=== PATIENT | female | born 1940 | race Caucasian/White ===

== ENCOUNTER 2017-04-19 06:07 | Inpatient (IN) | payer MEDICARE, OTHER ==
[2017-04-15 11:15] LABS: Basophils # (auto) 0.1 uL; Basophils % (auto) 1.1 % (0.0-2.0); Eosinophils # (auto) 0.2 uL; Eosinophils % (auto) 2.3 % (0.0-7.0); Hematocrit 41.9 % (36.0-46.0); Hemoglobin 13.9 g/dL (12.2-16.2); Lymphocytes # (auto) 2.4 uL; Lymphocytes % (auto) 35.6 % (10.0-50.0); Mean Corpuscular Hemoglobin 30.7 pg (28.0-32.0); Mean Corpuscular Hgb Conc. 33.1 g/dL (32.0-36.0); Mean Corpuscular Volume 92.9 fL (80.0-100.0); Monocytes # (auto) 0.6 uL; Neutrophils # (auto) 3.5 uL; Nucleated Red Blood Cells % 0.1 %; Platelet Count (auto) 247 10^3/uL (140-450); Red Blood Cells 4.51 10^6/uL (4.0-5.20); Red Cell Distribution Width 14.3 % (11.8-14.3); White Blood Cell 6.8 10^3/uL (4.4-10.8)
[2017-04-15 11:21] LABS: Urine Bacteria FEW /hpf (None Seen); Urine Blood Negative /uL (Negative); Urine Specific Gravity 1.008 (1.001-1.035); Urine WBC <1 /hpf (0 - 5)
[2017-04-15 11:30] LABS: INR 0.9 (0.9-1.15); Partial Thromboplastin Time 27.5 sec (22.64-33.71); Prothrombin Time 9.8 sec (9.37-12.3)
[2017-04-15 11:45] LABS: BUN/Creatinine Ratio 17.1; Bilirubin, Total 0.5 mg/dL (0.2-1.0); Calcium 8.5 mg/dL (8.5-10.1); Potassium 3.7 mmol/L (3.5-5.1); Total Protein 7.9 g/dL (6.4-8.2)
[~2017-04-19] VITALS: Ht 157.5 cm; Wt 64.0 kg
[~2017-04-19 06:07] MED LIST: AMLO10TA2 PO; ASPI81TA27 PO; ATOR10TA PO; METH-928 PO
[2017-04-19] MEDS ORDERED: ceFAZolin 1GM/50ML 50 ML IV ONE (06:46)
[2017-04-19] MEDS ORDERED: ROPIVACAINE 0.5% (5MG/ML) 20ML AMPULE IJ ONE (07:24)
[2017-04-19] MEDS ORDERED: LIDOCAINE 1% HCL (LOCAL ANESTH.) INJ 20ML MDV ONE (07:24)
[2017-04-19] MEDS ORDERED: LIDOCAINE W/ EPINEPHRINE 2% INJ 20ML VIAL ONE (07:31)
[2017-04-19] MEDS ORDERED: MIDAZOLAM HCL 1MG/1ML-2 ML VIAL ONE ×2 (07:31→07:34)
[2017-04-19] MEDS ORDERED: PROPOFOL 10 MG/ML 20 ML IV ONE (07:35)
[2017-04-19] MEDS ORDERED: STERILE WATER 10 ML ONE ×2 (07:37→09:30)
[2017-04-19] MEDS ORDERED: ePHEDrine SULFATE 50 MG/ML AMP ONE (07:37)
[2017-04-19] MEDS ORDERED: MORPHINE SULF(PF) 0.5MG/ML 10ML VIAL ONE (07:38)
[2017-04-19] MEDS ORDERED: diphenhdrAMINE HCL 50 MG/1 ML VL IV PRN (09:00)
[2017-04-19] MEDS ORDERED: HYDROmorphone HCL 2 MG/ML VL IV PRN ×2 (09:00→10:30)
[2017-04-19] MEDS ORDERED: NALOXONE HCL 0.4 MG/ML VIAL IV PRN ×2 (09:00)
[2017-04-19] MEDS ORDERED: ONDANSETRON HCL 4 MG/2 ML VIAL IV ONE (09:00)
[2017-04-19] MEDS ORDERED: ONDANSETRON HCL 4 MG/2 ML VIAL IV PRN ×2 (09:00→10:30)
[2017-04-19] MEDS ORDERED: hydrALAZINE HCL 20 MG/ML VL IV PRN (09:00)
[2017-04-19] MEDS ORDERED: PHENYLEPHRINE HCL 10 MG/ML VL ONE (09:30)
[2017-04-19] MEDS: LACTATED RINGER'S 1,000 ML IV SCH (10:28)
[2017-04-19] MEDS ORDERED: ACETAMINOPHEN 325 MG TAB PO PRN (10:30)
[2017-04-19] MEDS ORDERED: TEMAZEPAM 15 MG CAP PO PRN (10:30)
[2017-04-19] MEDS: ceFAZolin 1GM/50ML 50 ML IV SCH ×3 (13:02→23:08)
[2017-04-19 16:00] VITALS: BP 128/56
[2017-04-19] MEDS: SODIUM CHLOR 0.9% PF (SALINE LOCK) 10ML VIAL IV SCH ×2 (16:15→22:56)
[2017-04-19] MEDS: HYDROcodone-ACET 10/325MG TAB PO PRN (16:20)
[2017-04-19] MEDS: KETOROLAC TROMETH 30 MG/ML 1ML VIAL IV PRN (16:20)
[2017-04-19 16:54] VITALS: BP 128/56
[2017-04-19 22:00] VITALS: BP 107/60
[2017-04-19] MEDS: oxyCODONE ER 10 MG TAB PO SCH (22:55)
[2017-04-19] MEDS: DOCUSATE SOD 100 MG CAP PO SCH (22:55)
[2017-04-20] MEDS: KETOROLAC TROMETH 30 MG/ML 1ML VIAL IV PRN ×2 (02:23→16:06)
[2017-04-20 05:00] VITALS: BP 122/61
[2017-04-20] MEDS: SODIUM CHLOR 0.9% PF (SALINE LOCK) 10ML VIAL IV SCH ×3 (06:06→23:08)
[2017-04-20] MEDS: HYDROcodone-ACET 10/325MG TAB PO PRN (06:06)
[2017-04-20] MEDS: LACTATED RINGER'S 1,000 ML IV SCH (06:07)
[2017-04-20 09:00] VITALS: BP 129/61
[2017-04-20] MEDS: ENOXAPARIN SOD 40 MG/0.4 ML SYRINGE SC SCH (10:00)
[2017-04-20] MEDS: DOCUSATE SOD 100 MG CAP PO SCH ×2 (10:20→23:06)
[2017-04-20] MEDS: oxyCODONE ER 10 MG TAB PO SCH ×2 (10:20→23:24)
[2017-04-20] MEDS ORDERED: HYDROmorphone HCL 2 MG/ML VL IV PRN (10:45)
[2017-04-20 11:22] LABS: Hematocrit 30.3 % (36.0-46.0); Hemoglobin 10.2 g/dL (12.2-16.2)
[2017-04-20 13:00] VITALS: BP 137/67
[2017-04-20 17:00] VITALS: BP 144/71
[2017-04-20 21:30] VITALS: BP 134/61
[2017-04-21 05:00] VITALS: BP 118/67
[2017-04-21 05:35] LABS: Hematocrit 27.4 % (36.0-46.0); Hemoglobin 9.4 g/dL (12.2-16.2)
[2017-04-21] MEDS: SODIUM CHLOR 0.9% PF (SALINE LOCK) 10ML VIAL IV SCH ×3 (06:00→21:12)
[2017-04-21] MEDS: HYDROcodone-ACET 10/325MG TAB PO PRN (06:35)
[2017-04-21 08:00] VITALS: BP 140/103
[2017-04-21 09:03] VITALS: BP 140/70
[2017-04-21] MEDS: DOCUSATE SOD 100 MG CAP PO SCH ×2 (10:15→21:24)
[2017-04-21] MEDS: ENOXAPARIN SOD 40 MG/0.4 ML SYRINGE SC SCH (10:15)
[2017-04-21] MEDS: oxyCODONE ER 10 MG TAB PO SCH ×2 (10:16→21:24)
[2017-04-21 12:29] VITALS: BP 127/64
[2017-04-21 17:12] VITALS: BP 143/70
[2017-04-21 22:00] VITALS: BP 134/71
[2017-04-22 05:18] VITALS: BP 132/81
[2017-04-22] MEDS: SODIUM CHLOR 0.9% PF (SALINE LOCK) 10ML VIAL IV SCH (07:13)
[2017-04-22] MEDS: ENOXAPARIN SOD 40 MG/0.4 ML SYRINGE SC SCH (07:39)
[2017-04-22] MEDS: oxyCODONE ER 10 MG TAB PO SCH (07:39)
[2017-04-22] MEDS: DOCUSATE SOD 100 MG CAP PO SCH (07:39)
[2017-04-22 09:01] VITALS: BP 128/67
[2017-04-22 09:42] LABS: Hematocrit 26.4 % (36.0-46.0); Hemoglobin 9.1 g/dL (12.2-16.2)
== END 2017-04-22 13:59 | DRG 470 ==
LOC: SUR 06:07 → TELE-WESTW 12:20 → TELE-CENTR 16:03
PROVIDERS: ADMIT Orthopaedic Surgery; ATTEND Internal Medicine
PROC: 0MBP0ZZ Excision of Left Knee Bursa and Ligament, Open Approach (ICD-10-PCS; 2017-04-19)
PROC: 0KNR0ZZ Release Left Upper Leg Muscle, Open Approach (ICD-10-PCS; 2017-04-19)
PROC: 0QSF0ZZ Reposition Left Patella, Open Approach (ICD-10-PCS; 2017-04-19)
PROC: 0SRD0J9 Replacement of Left Knee Joint with Synthetic Substitute, Cemented, Open Approach (ICD-10-PCS; principal; 2017-04-19 07:55)
DX: M17.12 Unilateral primary osteoarthritis, left knee (principal); E78.5 Hyperlipidemia, unspecified; M70.42 Prepatellar bursitis, left knee; M24.562 Contracture, left knee; Z96.651 Presence of right artificial knee joint; I10 Essential (primary) hypertension; Z91.040 Latex allergy status; Z90.710 Acquired absence of both cervix and uterus
CPT/HCPCS: 36415; 73562; 80053; 81001; 85014; 85018; 85025; 85610; 85730; 86850; 86900; 86901; 97116; 97163; 97530; J0690; J1885; J2001; J2250; J2405; J2704